=== PATIENT | female | born 1935 | race Caucasian/White ===

== ENCOUNTER → 2017-03-18 | Outpatient (CLI) | payer MEDICARE, OTHER ==
[~2017-03-18] MED LIST: ALPR0.25 PO; APIX5TAB PO; ASPI-496 PO; CALC500P3 MT; CHOL200040 PO; LEVO50TA PO; LOVA10TA PO; LOVA20TA2 PO; MELO-184 PO; METO25TA91 PO; POTA2TAB8 PO; PROP10TA PO; VIT1TABL32 PO; VITA1TAB19 PO; ZOLP-413 PO
== END | disposition home or self-care (01) ==
LOC: CVU 08:15
PROVIDERS: ATTEND Internal Medicine Cardiovascular Disease
DX: I34.0 Nonrheumatic mitral (valve) insufficiency (principal)
CPT/HCPCS: 93306

== ENCOUNTER 2017-06-24 13:31 | Inpatient (IN) | payer MEDICARE, OTHER ==
[~2017-06-24] VITALS: Ht 167.6 cm; Wt 65.0 kg
[~2017-06-24 13:31] MED LIST changes: -MELO-184 PO; +MELO15TA24 PO
[2017-06-24] MEDS ORDERED: SODIUM CHLORIDE FLUSH 10ML SYR IVF ONE (14:00)
[2017-06-24] MEDS ORDERED: DILTIAZEM 5 MG/ML, 5ML IVPush ONE (14:30)
[2017-06-24 14:42] LABS: HEMATOCRIT 42.6 % (34.6-47.8); HEMOGLOBIN 14.4 g/dL (11.7-16.4); WHITE BLOOD COUNT 8.1 x10^3/uL (3.4-10)
[2017-06-24 14:51] LABS: BLOOD UREA NITROGEN 26 mg/dL (7-18)
[2017-06-24 14:55] LABS: IS PT STATUS REG ER OR PRE ER? YES
[2017-06-24] MEDS ORDERED: SODIUM CHLORIDE 0.9%, 500ML IVBOLUS ONE (15:00)
[2017-06-24] MEDS ORDERED: IBUTILIDE 1 MG in SODIUM CHLORIDE 0.9% 50 ML IV ONE (15:00)
[2017-06-24] MEDS ORDERED: SODIUM CHLORIDE 0.9% 1,000 ML IV SCH (15:47)
[2017-06-24] MEDS ORDERED: POLYETHYLENE GLYCOL 17 GM PACKET PO PRN (16:00)
[2017-06-24] MEDS ORDERED: HYDROcodone/APAP 5/325 TABLET PO PRN (16:00)
[2017-06-24] MEDS ORDERED: ONDANSETRON 2MG/ML, 2ML IVPush PRN (16:00)
[2017-06-24] MEDS ORDERED: ZOLPIDEM 5MG TABLET PO PRN (16:00)
[2017-06-24] MEDS ORDERED: DOCUSATE 100 MG CAPSULE PO PRN (16:00)
[2017-06-24] MEDS ORDERED: morphine SULFATE 10 MG/ML, 1ML IVPush PRN (16:00)
[2017-06-24] MEDS ORDERED: ACETAMINOPHEN 325 MG TABLET PO PRN (16:00)
[2017-06-24] MEDS ORDERED: DIGO125T PO (17:05)
[2017-06-24 17:27] VITALS: BP 131/80
[2017-06-24] MEDS: APIXABAN 5 MG TABLET PO SCH (20:08)
[2017-06-24 20:10] VITALS: BP 97/62
[2017-06-24 20:17] VITALS: BP 95/60
[2017-06-24] MEDS ORDERED: LOVASTATIN 40 MG TABLET PO SCH (21:00)
[2017-06-25 01:55] VITALS: BP 101/64
[2017-06-25 05:26] LABS: BLOOD UREA NITROGEN 26 mg/dL (7-18)
[2017-06-25] MEDS ORDERED: LEVOTHYROXINE 50 MCG TABLET PO SCH (06:00)
[2017-06-25 07:12] VITALS: BP 114/73
[2017-06-25] MEDS ORDERED: DRONEDARONE 400MG TABLET PO ONE (08:30)
[2017-06-25] MEDS ORDERED: METOPROLOL SUCCINATE 25 MG TAB.ER.24H PO SCH (09:00)
[2017-06-25] MEDS ORDERED: SENNA/DOCUSATE TABLET PO SCH (09:00)
[2017-06-25] MEDS: APIXABAN 5 MG TABLET PO SCH (09:35)
[2017-06-25] MEDS ORDERED: DRON400T PO (13:50)
[2017-06-25 14:26] VITALS: BP 103/59
[2017-06-25] MEDS ORDERED: DRONEDARONE 400MG TABLET PO SCH (17:00)
[2017-06-26] MEDS ORDERED: POTASSIUM GLUCONATE PO SCH (09:00)
== END 2017-06-25 16:40 | disposition home or self-care (01) | DRG 309 ==
LOC: ED 14:56 → EDIP 14:57 → SUATTDRO 15:23 → ED 16:02 → 5SO 17:14 → DCLOUNGE 06-25 16:29
PROVIDERS: ADMIT Hospitalist; ATTEND Family Medicine
DX: I48.1 Persistent atrial fibrillation (principal); D68.69 Other thrombophilia; I34.0 Nonrheumatic mitral (valve) insufficiency; I48.0 Paroxysmal atrial fibrillation; E03.9 Hypothyroidism, unspecified; E78.5 Hyperlipidemia, unspecified; I10 Essential (primary) hypertension; I48.92 Unspecified atrial flutter; N28.9 Disorder of kidney and ureter, unspecified; Z79.01 Long term (current) use of anticoagulants; Z87.891 Personal history of nicotine dependence
CPT/HCPCS: 36415; 71010; 80048; 82040; 83880; 84439; 84443; 84484; 85025; 93005; 96361; 96365; J1742; J7030; J7040

== ENCOUNTER 2017-06-27 03:43 | Emergency (ER) | payer MEDICARE, OTHER ==
[~2017-06-27] VITALS: Ht 167.6 cm; Wt 66.0 kg
[~2017-06-27 03:43] MED LIST changes: +DIGO125T PO; +DRON400T PO
[2017-06-27 05:52] LABS: HEMATOCRIT 38.7 % (34.6-47.8); HEMOGLOBIN 13.1 g/dL (11.7-16.4); WHITE BLOOD COUNT 6.9 x10^3/uL (3.4-10)
[2017-06-27 06:01] LABS: ASPARTATE AMINO TRANSFERASE 30 U/L (15-37); BLOOD UREA NITROGEN 18 mg/dL (7-18)
[2017-06-27 06:54] VITALS: BP 119/70
== END 2017-06-27 06:56 | disposition home or self-care (01) ==
LOC: ED 04:53
DX: I48.0 Paroxysmal atrial fibrillation (principal); N28.9 Disorder of kidney and ureter, unspecified; R00.2 Palpitations; E78.5 Hyperlipidemia, unspecified
CPT/HCPCS: 36415; 80053; 85025; 93005; 99285

== ENCOUNTER 2017-08-28 04:27 | Emergency (ER) | payer MEDICARE, OTHER ==
[~2017-08-28] VITALS: Ht 167.6 cm; Wt 66.0 kg
[2017-08-28] MEDS ORDERED: SODIUM CHLORIDE 0.9% 1,000 ML IV ONE (05:03)
[2017-08-28 05:42] LABS: HEMATOCRIT 40.5 % (34.6-47.8); HEMOGLOBIN 13.7 g/dL (11.7-16.4); WHITE BLOOD COUNT 9.6 x10^3/uL (3.4-10)
[2017-08-28] MEDS ORDERED: DILTIAZEM 5 MG/ML, 5ML ONE (05:43)
[2017-08-28 05:53] LABS: ASPARTATE AMINO TRANSFERASE 41 U/L (15-37); BLOOD UREA NITROGEN 27 mg/dL (7-18)
[2017-08-28] MEDS ORDERED: DILTIAZEM 5 MG/ML, 5ML IVPush ONE (06:00)
[2017-08-28] MEDS ORDERED: ONDANSETRON 2MG/ML, 2ML ONE (07:26)
[2017-08-28] MEDS ORDERED: ONDANSETRON 2MG/ML, 2ML IVPush ONE (07:30)
[2017-08-28] MEDS ORDERED: PROPOFOL 10 MG/ML, 20ML ONE (08:21)
[2017-08-28] MEDS ORDERED: PROPOFOL 10 MG/ML, 20ML IVP ONE (08:30)
[2017-08-28 10:09] VITALS: BP 96/44
== END 2017-08-28 10:11 | disposition home or self-care (01) ==
LOC: ED 06:54
DX: I48.2 Chronic atrial fibrillation (principal); K52.9 Noninfective gastroenteritis and colitis, unspecified; E86.0 Dehydration; E78.5 Hyperlipidemia, unspecified; I48.92 Unspecified atrial flutter; Z79.01 Long term (current) use of anticoagulants
CPT/HCPCS: 36415; 74022; 80053; 81003; 83690; 85025; 92960; 93005; 96361; 96374; 96375; 99285; J2405; J2704; J7030

== ENCOUNTER 2017-10-22 17:23 | Emergency (ER) | payer MEDICARE, OTHER ==
[~2017-10-22] VITALS: Ht 165.1 cm; Wt 65.4 kg
[2017-10-22 18:06] LABS: BASOPHILS # (AUTO) 0.04 x10^3/uL (0-0.1); BASOPHILS % (AUTO) 1 % (0-1); EOSINOPHILS % (AUTO) 2 % (1-7); LYMPHOCYTES # (AUTO) 1.13 x10^3/uL (1-3.4); LYMPHOCYTES % (AUTO) 16 % (22-44); MD NO; MEAN CORPUSCULAR HEMOGLOBIN 29.2 pg (27.0-34.8); MEAN CORPUSCULAR HGB CONC 32.9 g/dL (32.4-35.8); MEAN CORPUSCULAR VOLUME 88.7 fL (80-100); MEAN PLATELET VOLUME 8.3 fL (7.4-10.4); MONOCYTES % (AUTO) 17 % (2-9); NEUTROPHILS # (AUTO) 4.64 x10^3/uL (1.8-6.8); NEUTROPHILS % (AUTO) 65 % (42-75); PLATELET COUNT 258 x10^3/uL (130-400); RED CELL DISTRIBUTION WIDTH 13.4 % (9.6-15.2)
[2017-10-22 18:12] LABS: ALANINE AMINOTRANSFERASE 39 U/L (12-78); ALBUMIN 3.6 g/dL (3.4-5.0); ANION GAP 9 mmol/L (5-15); CALCIUM 8.8 mg/dL (8.5-10.1); CHLORIDE 101 mmol/L (98-107); CREATININE 1.41 mg/dL (0.55-1.02)
[2017-10-22 18:16] LABS: ALKALINE PHOSPHATASE 79 U/L (45-117); BILIRUBIN,TOTAL 0.5 mg/dL (0.2-1.0); TOTAL PROTEIN 7.9 g/dL (6.4-8.2); TROPONIN I 0.016 ng/mL (0.000-0.045)
[2017-10-22] MEDS ORDERED: METOPROLOL TARTRATE 25 MG TABLET PO ONE (18:48)
[2017-10-22] MEDS ORDERED: METOPROLOL TARTRATE 25 MG TABLET ONE (18:55)
[2017-10-22] MEDS ORDERED: SODIUM CHLORIDE FLUSH 10ML SYR IVF ONE (19:00)
[2017-10-22] MEDS ORDERED: PROPOFOL 10 MG/ML, 20ML ONE (19:27)
[2017-10-22 20:30] VITALS: BP 112/64
== END 2017-10-22 20:32 | disposition home or self-care (01) ==
LOC: ED 20:15
DX: I48.0 Paroxysmal atrial fibrillation (principal); E78.5 Hyperlipidemia, unspecified
CPT/HCPCS: 29260; 36415; 71045; 80053; 80162; 84484; 85025; 92960; 93005; 99152; 99153; 99285

== ENCOUNTER 2017-12-06 09:56 | Inpatient (IN) | payer MEDICARE, OTHER ==
[~2017-12-06] VITALS: Ht 167.6 cm; Wt 64.9 kg
[2017-12-06] MEDS ORDERED: SODIUM CHLORIDE FLUSH 10ML SYR IVF ONE (10:30)
[2017-12-06] MEDS ORDERED: SODIUM CHLORIDE 0.9% 1,000ML IVBOLUS ONE (10:30)
[2017-12-06] MEDS ORDERED: METO25TA35 PO ×2 (10:36→13:54)
[2017-12-06 10:41] LABS: BASOPHILS # (AUTO) 0.04 x10^3/uL (0-0.1); BASOPHILS % (AUTO) 0 % (0-1); EOSINOPHILS # (AUTO) 0.19 x10^3/uL (0-0.4); EOSINOPHILS % (AUTO) 2 % (1-7); LYMPHOCYTES # (AUTO) 1.74 x10^3/uL (1-3.4); LYMPHOCYTES % (AUTO) 21 % (22-44); MD NO; MEAN CORPUSCULAR HEMOGLOBIN 28.8 pg (27.0-34.8); MEAN CORPUSCULAR HGB CONC 33.2 g/dL (32.4-35.8); MEAN CORPUSCULAR VOLUME 86.8 fL (80-100); MEAN PLATELET VOLUME 8.6 fL (7.4-10.4); MONOCYTES # (AUTO) 0.73 x10^3/uL (0.2-0.8); MONOCYTES % (AUTO) 9 % (2-9); NEUTROPHILS # (AUTO) 5.49 x10^3/uL (1.8-6.8); NEUTROPHILS % (AUTO) 67 % (42-75); PLATELET COUNT 251 x10^3/uL (130-400); RED BLOOD COUNT 4.78 x10^6/uL (3.82-5.3); RED CELL DISTRIBUTION WIDTH 14.5 % (9.6-15.2)
[2017-12-06 10:49] LABS: INTERNATIONAL NORMALIZED RATIO 1.04 (0.93-1.1); PROTHROMBIN TIME 10.7 Seconds (9.6-11.5)
[2017-12-06 10:54] LABS: ALBUMIN 3.6 g/dL (3.4-5.0); ANION GAP 7 mmol/L (5-15); CHLORIDE 109 mmol/L (98-107); CREATININE 1.14 mg/dL (0.55-1.02)
[2017-12-06 10:57] LABS: FREE T4 (FREE THYROXINE) 1.42 ng/dL (0.76-1.46); TROPONIN I < 0.015 ng/mL (0.000-0.045)
[2017-12-06 11:03] LABS: THYROID STIMULATING HORMONE 0.894 mIU/L (0.358-3.740)
[2017-12-06] MEDS ORDERED: ADENOSINE 6 MG/2 ML ONE (11:41)
[2017-12-06] MEDS ORDERED: FILTER 0.22 MICRON IV ONE (12:00)
[2017-12-06] MEDS ORDERED: AMIODARONE 150 MG in DEXTROSE 5% 100 ML IV ONE (12:00)
[2017-12-06] MEDS ORDERED: ADENOSINE 6 MG/2 ML IVPush ONE (12:00)
[2017-12-06] MEDS ORDERED: ACETAMINOPHEN 325 MG TABLET PO PRN (12:30)
[2017-12-06 12:45] VITALS: BP 124/46
[2017-12-06 19:42] VITALS: BP 100/55
[2017-12-06] MEDS: APIXABAN 5 MG TABLET PO SCH (20:32)
[2017-12-06] MEDS: AMIODARONE 200 MG TABLET PO SCH (20:33)
[2017-12-06] MEDS: ZOLPIDEM 10MG TABLET PO PRN (20:33)
[2017-12-06] MEDS ORDERED: METOPROLOL TARTRATE 25 MG TABLET PO SCH ×2 (21:00)
[2017-12-06] MEDS ORDERED: LOVASTATIN 20 MG TABLET PO SCH (21:00)
[2017-12-07] MEDS: ZOLPIDEM 10MG TABLET PO PRN (01:06)
[2017-12-07 01:09] VITALS: BP 103/55
[2017-12-07 05:14] LABS: ANION GAP 8 mmol/L (5-15); CALCIUM 8.5 mg/dL (8.5-10.1); CHLORIDE 108 mmol/L (98-107)
[2017-12-07 05:16] LABS: CREATININE 1.14 mg/dL (0.55-1.02)
[2017-12-07] MEDS ORDERED: LEVOTHYROXINE 75 MCG TABLET PO SCH (06:00)
[2017-12-07] MEDS: AMIODARONE 200 MG TABLET PO SCH (07:54)
[2017-12-07] MEDS: APIXABAN 5 MG TABLET PO SCH (07:54)
[2017-12-07 07:58] VITALS: BP 124/63
[2017-12-07] MEDS ORDERED: AMIO200T42 PO (08:05)
[2017-12-07] MEDS ORDERED: MULTIVITS,STRESS FORMULA 1 TABLET PO SCH (09:00)
[2017-12-07] MEDS ORDERED: METOPROLOL TARTRATE 25 MG TABLET PO SCH (09:00)
[2017-12-07] MEDS ORDERED: CHOLECALCIFEROL 1,000 UNIT TABLET PO SCH (09:00)
== END 2017-12-07 11:56 | disposition home or self-care (01) | DRG 309 ==
LOC: ED 10:30 → EDIP 12:04 → 5SO 12:36 → DCLOUNGE 12-07 11:40
PROVIDERS: ADMIT Internal Medicine Cardiovascular Disease; ATTEND Internal Medicine Cardiovascular Disease
DX: I48.0 Paroxysmal atrial fibrillation (principal); D68.69 Other thrombophilia; I95.9 Hypotension, unspecified; I34.0 Nonrheumatic mitral (valve) insufficiency; I46.9 Cardiac arrest, cause unspecified; I48.92 Unspecified atrial flutter; E03.9 Hypothyroidism, unspecified; E78.5 Hyperlipidemia, unspecified; F41.9 Anxiety disorder, unspecified
CPT/HCPCS: 36415; 71045; 80048; 82040; 83735; 84439; 84443; 84484; 85025; 85610; 85730; 93005; J0153; J0282; J7030

== ENCOUNTER → 2018-08-10 | Outpatient (CLI) | payer MEDICARE, OTHER ==
[~2018-08-10] MED LIST changes: +AMIO200T42 PO; +METO25TA35 PO
== END | disposition home or self-care (01) ==
LOC: CFH 10:08
PROVIDERS: ATTEND Internal Medicine Cardiovascular Disease
DX: I08.1 Rheumatic disorders of both mitral and tricuspid valves (principal); I48.91 Unspecified atrial fibrillation; E78.5 Hyperlipidemia, unspecified; Z79.01 Long term (current) use of anticoagulants
CPT/HCPCS: 93306

== ENCOUNTER → 2019-09-16 | Outpatient (CLI) | payer MEDICARE, OTHER ==
[~2019-09-16] MED LIST changes: -PROP10TA PO; +PROP10TA16 PO
== END | disposition home or self-care (01) ==
LOC: CVU 09:24
PROVIDERS: ATTEND Internal Medicine Cardiovascular Disease
DX: I65.23 Occlusion and stenosis of bilateral carotid arteries (principal); I34.0 Nonrheumatic mitral (valve) insufficiency; I10 Essential (primary) hypertension; I48.91 Unspecified atrial fibrillation
CPT/HCPCS: 93306; 93880

== ENCOUNTER 2020-02-07 14:01 | Outpatient (CLI) | payer MEDICARE, OTHER ==
[~2020-02-07 14:01] MED LIST changes: -DIGO125T PO; +DIGO125T85 PO
[2020-02-07] MEDS ORDERED: ZOLP-413 PO (15:48)
[2020-02-07] MEDS ORDERED: SUCR1TAB PO (15:48)
[2020-02-07] MEDS ORDERED: ASCO10004 PO (15:48)
[2020-02-07] MEDS ORDERED: LEVO50TA5 PO (15:48)
== END 2020-02-07 23:59 | disposition home or self-care (01) ==
LOC: STAR 14:01
PROVIDERS: ATTEND Thoracic Surgery (Cardiothoracic Vascular Surgery)
DX: Z01.818 Encounter for other preprocedural examination (principal); I25.2 Old myocardial infarction
CPT/HCPCS: 93005; U0001-CS

== ENCOUNTER 2020-02-15 10:00 | Day surgery (SDC) | payer MEDICARE, OTHER ==
[~2020-02-15] VITALS: Ht 167.6 cm; Wt 56.8 kg
[~2020-02-15 10:00] MED LIST changes: +ASCO10004 PO; +BUPIVACAINE/PF-EPI 0.5% 1:200K ONE; +LEVO50TA5 PO; +SUCR1TAB PO
[2020-02-15 10:22] VITALS: BP 129/74
[2020-02-15] MEDS ORDERED: ACETAMINOPHEN 500 MG TABLET ONE (10:25)
[2020-02-15] MEDS ORDERED: CHLORHEXIDINE 15 ML UDC ONE (10:25)
[2020-02-15] MEDS ORDERED: ACETAMINOPHEN 500 MG TABLET PO ONE (10:30)
[2020-02-15] MEDS ORDERED: CHLORHEXIDINE 15 ML UDC MM ONE (10:30)
[2020-02-15] MEDS ORDERED: ALBUTEROL SULFATE 2.5 MG/3 ML NPPB PRN (11:00)
[2020-02-15] MEDS ORDERED: MEPERIDINE/PF 25MG/0.5ML IVPush PRN (11:00)
[2020-02-15] MEDS ORDERED: PROMETHAZINE 25 MG/ML, 1ML IVPush PRN (11:00)
[2020-02-15] MEDS ORDERED: LACTATED RINGERS 1,000 ML IV SCH ×2 (11:00→12:49)
[2020-02-15] MEDS ORDERED: HALOPERIDOL 5 MG/ML IV PRN (11:00)
[2020-02-15] MEDS ORDERED: hydrALAzine 20 MG/ML, 1ML IV PRN (11:00)
[2020-02-15] MEDS ORDERED: HYDROmorphone 1 MG/ML, 1ML INJ IVPush PRN (11:00)
[2020-02-15] MEDS ORDERED: HYDROcodone/APAP 7.5-325MG/15ML UDC PO PRN (11:00)
[2020-02-15] MEDS ORDERED: DIPHENHYDRAMINE 50 MG/ML, 1ML IVPush PRN (11:00)
[2020-02-15] MEDS ORDERED: LABETALOL 5MG/ML, 20ML IV PRN (11:00)
[2020-02-15] MEDS ORDERED: OXYcodone 5 MG/5 ML ORAL.SOL UDC PO PRN (11:30)
[2020-02-15] MEDS ORDERED: FENTANYL PF 250 MCG/5ML ONE (11:31)
[2020-02-15] MEDS ORDERED: PROPOFOL 10 MG/ML, 20ML ONE (12:42)
[2020-02-15] MEDS ORDERED: GLYCOPYRROLATE 0.2MG/1ML, 5ML ONE (12:42)
[2020-02-15] MEDS ORDERED: NEOSTIGMINE 1 MG/ML, 10ML ONE (12:42)
[2020-02-15] MEDS ORDERED: CEFAZOLIN 1,000 MG ONE (12:42)
[2020-02-15] MEDS ORDERED: ONDANSETRON 2MG/ML, 2ML ONE (12:42)
[2020-02-15] MEDS ORDERED: ROCURONIUM 10MG/ML,5ML ONE (12:42)
[2020-02-15] MEDS ORDERED: SUCCINYLCHOLINE 20 MG/ML, 10ML ONE (12:42)
[2020-02-15] MEDS ORDERED: DEXAMETHASONE 4 MG/ML, 1ML ONE (12:42)
[2020-02-15] MEDS ORDERED: HYDROcodone/APAP 5/325 TABLET PO PRN (13:00)
[2020-02-15] MEDS ORDERED: ONDANSETRON 2MG/ML, 2ML IVPush PRN (13:00)
[2020-02-15] MEDS ORDERED: OXYcodone 5 MG/5 ML ORAL.SOL UDC ONE (13:05)
[2020-02-15] MEDS ORDERED: FENTANYL PF 100 MCG/2ML ONE (13:08)
[2020-02-15] MEDS ORDERED: MORPHINE SULFATE 4 MG/ML, 1ML ONE (13:08)
[2020-02-15] MEDS: FENTANYL PF 100 MCG/2ML IV PRN ×4 (13:10→13:37)
[2020-02-15] MEDS: morphine SULFATE 10 MG/ML, 1ML IVPush PRN ×2 (13:11→13:43)
== END 2020-02-15 16:30 | disposition home or self-care (01) ==
LOC: OUT 10:00
PROVIDERS: ATTEND Thoracic Surgery (Cardiothoracic Vascular Surgery)
DX: K43.2 Incisional hernia without obstruction or gangrene (principal); I10 Essential (primary) hypertension; K21.9 Gastro-esophageal reflux disease without esophagitis; E78.00 Pure hypercholesterolemia, unspecified; E03.9 Hypothyroidism, unspecified; Z79.01 Long term (current) use of anticoagulants; Z79.890 Hormone replacement therapy; Z79.899 Other long term (current) drug therapy; Z90.49 Acquired absence of other specified parts of digestive tract; Z98.890 Other specified postprocedural states; Z80.0 Family history of malignant neoplasm of digestive organs
CPT/HCPCS: 49654; C1781; J0330; J0690; J1100; J2270; J2405; J2704; J2710; J3010; J7120

== ENCOUNTER → 2020-09-10 | Outpatient (CLI) | payer MEDICARE, OTHER ==
[~2020-09-10] MED LIST changes: +ASCO100018 PO; -ASCO10004 PO; -BUPIVACAINE/PF-EPI 0.5% 1:200K ONE
== END | disposition home or self-care (01) ==
LOC: CFH 12:20
PROVIDERS: ATTEND Internal Medicine Cardiovascular Disease
DX: I08.3 Combined rheumatic disorders of mitral, aortic and tricuspid valves (principal)
CPT/HCPCS: 93306